=== PATIENT | male | born 2000 | race Caucasian/White ===

== ENCOUNTER 2023-09-09 15:23 | Emergency (ER) | payer OTHER ==
[~2023-09-09] VITALS: Ht 188 cm; Wt 123.7 kg
[2023-09-09 15:25] VITALS: BP 139/80; TEMP 97.3; O2SAT 99
== END 2023-09-09 18:35 | disposition home or self-care (01) ==
LOC: M ED 15:23
DX: R43.8 Other disturbances of smell and taste (principal); F17.200 Nicotine dependence, unspecified, uncomplicated; Z87.820 Personal history of traumatic brain injury